=== PATIENT | female | born 1950 | race Caucasian/White ===

== ENCOUNTER 2019-07-23 07:28 | Emergency (ER) | payer MEDICARE ==
[2019-07-23 08:06] VITALS: BP 111/67
--- NOTE | 2019-07-23 08:54 | UC ---
Throat Pain/Nasal Noe HPI - HPI Summary HPI Summary: 69-year-old woman comes in with 4 days of upper respiratory tract infection symptoms. Started out with sore throat and rhinorrhea. Sore throat got worse in to this morning when it did improve. Patient hasn't artificial valve and and she is concerned whether or not she has strep to make sure she can be treated to avoid any problems with her valve. No chest pain no shortness of breath. Her voice to go horse. It is improved overnight. - History of Current Complaint Chief Complaint: UCRespiratory Stated Complaint: COUGH Time Seen by Provider: 07/23/19 08:13 Pain Intensity: 0 - Allergies/Home Medications Allergies/Adverse Reactions: Allergies Allergy/AdvReac Type Severity Reaction Status Date / Time No Known Allergies Allergy Verified 07/23/19 07:51 Home Medications: Home Medications Amoxicillin 500 mg PO PRN 07/23/19 [History] Aspirin 81 mg CHEW TAB* [Aspirin Low Dose TAB*] 81 mg PO DAILY 07/23/19 [ History Confirmed 07/23/19] Atorvastatin* [Lipitor*] 20 mg PO DAILY 07/23/19 [History Confirmed 07/23/19] Glimepiride 4 mg PO BID 07/23/19 [History Confirmed 07/23/19] Lisinopril TAB* [Prinivil TAB*] 5 mg PO DAILY 07/23/19 [History Confirmed ] Warfarin TAB(*) [Coumadin TAB(*)] 5 mg PO DAILY 07/23/19 [History Confirmed ] Warfarin TAB(*) [Coumadin TAB(*)] 7.5 mg PO 07/23/19 [History] PMH/Surg Hx/FS Hx/Imm Hx Previously Healthy: Yes Endocrine History: Dyslipidemia Cardiovascular History: Hypertension Other Cardiovascular History: [facility] is valve - Surgical History Surgical History: Yes Surgery Procedure, Year, and Place: AORTIC VALVE AND ARCH REPLACEMENT 2008. TONSILLECTOMY. CHOLYCYSTECTOMY. COLECTOMY FOR ADENOMA - Family History Known Family History: Positive: Non-Contributory - Social History Alcohol Use: Occasionally Substance Use Type: None Smoking Status (MU): Never Smoked Tobacco Review of Systems All Other Systems Reviewed And Are Negative: Yes Constitutional: Positive: Other - SEE HPI Skin: Positive: Negative Eyes: Positive: Negative ENT: Positive: Sore Throat, Nasal Discharge, Sinus Congestion Respiratory: Positive: Negative Cardiovascular: Positive: Negative Gastrointestinal: Positive: Negative Motor: Positive: Negative Neurovascular: Positive: Negative Musculoskeletal: Positive: Negative Neurological: Positive: Negative Psychological: Positive: Negative Is Patient Immunocompromised?: No Physical Exam Triage Information Reviewed: Yes Appearance: No Pain Distress, Well-Nourished, Ill-Appearing - MILD Vital Signs: Initial Vital Signs Temp 98.5 F 07/23/19 07:58 Pulse 86 07/23/19 07:58 Resp 18 07/23/19 07:58 BP 111/67 07/23/19 07:58 Pulse Ox 97 07/23/19 07:58 Vital Signs Reviewed: Yes Eye Exam: Normal Eyes: Positive: Conjunctiva Clear ENT: Positive: Pharyngeal erythema, Nasal congestion, Nasal drainage, TMs normal Neck: Positive: Supple Respiratory: Positive: Lungs clear, Normal breath sounds, No respiratory distress Cardiovascular: Positive: RRR, Other: - Artificial valve click Musculoskeletal: Positive: Strength Intact, ROM Intact, No Edema - NO CALF TENDERNESS Neurological: Positive: Alert, Muscle Tone Normal Psychological: Positive: Age Appropriate Behavior Skin Exam: Normal Throat Pain/Nasal Course/Dx - Course Course Of Treatment: We discussed viral versus bacterial infections. Strep was negative. Patient is on day 4 of upper respiratory tract infection symptoms. At this time were not to treat with antibiotics and treat as a viral illness. Patient is to get reevaluated if not improving or worse or any questions or concerns - Differential Dx/Diagnosis Provider Diagnosis: Upper respiratory infection, Pharyngitis Discharge ED - Sign-Out/Discharge Documenting (check all that apply): Patient Departure All imaging exams completed and their final reports reviewed: No Studies - Discharge Plan Condition: Stable Disposition: HOME Patient Education Materials: Pharyngitis (ED), Upper Respiratory Infection (ED) Referrals: Mahsa Muñoz PA [Primary Care Provider] - Additional Instructions: FOLLOW UP WITH YOUR DOCTOR IF NOT COMPLETELY IMPROVED. GET RECHECKED SOONER IF WORSE OR ANY QUESTIONS OR CONCERNS. - Billing Disposition and Condition Condition: STABLE Disposition: Home
== END 2019-07-23 09:04 | disposition home or self-care (01) ==
LOC: UCCORT 07:28
DX: J06.9 Acute upper respiratory infection, unspecified (principal); J02.9 Acute pharyngitis, unspecified; Z95.2 Presence of prosthetic heart valve; Z79.01 Long term (current) use of anticoagulants; I10 Essential (primary) hypertension; E78.5 Hyperlipidemia, unspecified
CPT/HCPCS: 87651; 99211; G0463